=== PATIENT | male | born 1960 ===

== ENCOUNTER 2017-12-10 10:54 | Emergency (ER) | payer OTHER ==
[2017-12-10 11:20] VITALS: BP 138/89
--- NOTE | 2017-12-10 11:55 | UC ---
Skin Complaint HPI - HPI Summary HPI Summary: C/O possible wound infection left leg. Has had an ulcer since September. Fever the last several days. No pain. - History of Current Complaint Chief Complaint: UCSkin Time Seen by Provider: 12/10/17 11:37 Stated Complaint: SKIN COMPLAINT Hx Obtained From: Patient Onset/Duration: Gradual Onset - ulcers since September, Worse Since - Last 2 days with fever Timing: Constant Onset Severity: Mild Current Severity: Moderate Pain Intensity: 0 Location: Discrete - left lower leg Character: Swelling, Redness, Raised Aggravating Factor(s): Nothing Alleviating Factor(s): Nothing Associated Signs & Symptoms: Positive: Fever, Lightheadedness. Negative: Cough , Wheezing, Chest Pain, Hoarseness, Throat Tightening, Rash, Abdominal Pain - Allergy/Home Medications Allergies/Adverse Reactions: Allergies Allergy/AdvReac Type Severity Reaction Status Date / Time No Known Allergies Allergy Verified 12/10/17 11:07 Home Medications: Home Medications Acetaminophen [Acetaminophen Extra Strength] 1,000 mg PO ONCE PRN 12/10/17 [ History Confirmed 12/10/17] Ibuprofen TAB* [Motrin TAB* 600 MG] 600 mg PO BID PRN 12/10/17 [History Confirmed 12/10/17] Review of Systems Constitutional: Fever Skin: Other - Open sores left leg Musculoskeletal: Edema Is Patient Immunocompromised?: No All Other Systems Reviewed And Are Negative: Yes PMH/Surg Hx/FS Hx/Imm Hx Previously Healthy: Yes Other History Of: Negative For: Anticoagulant Therapy - Surgical History Surgical History: Yes Surgery Procedure, Year, and Place: cholecystectomy - Family History Known Family History: Positive: Diabetes - Social History Occupation: Employed Full-time Lives: With Family Alcohol Use: Rare Substance Use Type: None Smoking Status (MU): Never Smoked Tobacco - Immunization History Most Recent Tetanus Shot: Unknown Physical Exam Triage Information Reviewed: Yes Appearance: No Pain Distress, Well-Nourished, Obese Vital Signs: Initial Vital Signs Temp 98.5 F 12/10/17 11:10 Pulse 74 12/10/17 11:10 Resp 20 12/10/17 11:10 BP 138/89 12/10/17 11:10 Pulse Ox 98 12/10/17 11:10 Vital Signs Reviewed: Yes Eyes: Positive: Conjunctiva Clear Neck exam: Normal Respiratory Exam: Normal Cardiovascular Exam: Normal Abdomen Description: Positive: Nontender Musculoskeletal: Positive: Edema @ - Right LE 2-3+ pretibial. Left 4+ tense edema Neurological Exam: Normal Psychological Exam: Normal Skin: Positive: Other - upen ulcers left leg in the skin folds. Course/Dx - Differential Diagnoses - Skin Complaint Differential Diagnoses: Abscess, Cellulitis, Urticaria - Diagnoses Provider Diagnoses: Venous stasis with Ulceration. Cellulitis left lower leg Discharge - Discharge Plan Condition: Stable Disposition: HOME Prescriptions: Cephalexin CAP* [Keflex 500 CAP*] 500 mg PO QID #40 cap Patient Education Materials: Cellulitis (ED), Cephalexin (By mouth), Stasis Dermatitis (ED) Referrals: Non Staff,Doctor [Primary Care Provider] - Additional Instructions: Keep salt to < 2000mg a day. Keep leg elevated when sitting down. Ibuprofen will make you retain salt and make the swelling worse. Swimming can help with the swelling and with weight loss. Use vaseline or antibiotic ointment over the ulcer changing twice a day. You may need to re wrap the xavi wraps to keep them tight. Put them on first thing in the morning.
== END 2017-12-10 12:17 | disposition home or self-care (01) ==
LOC: UCCORT 10:54
DX: I83.029 Varicose veins of left lower extremity with ulcer of unspecified site (principal); L03.116 Cellulitis of left lower limb
CPT/HCPCS: 99202; G0463